=== PATIENT | male | born 1995 | race Caucasian/White ===

== ENCOUNTER 2024-03-14 07:41 | Emergency (ER) | payer BC, SELFPAY ==
[2024-03-14 07:45] VITALS: BP 157/11
[2024-03-14 08:00] VITALS: BP 156/110
--- NOTE | 2024-03-14 08:05 | ED.GENMED ---
History of Present Illness
General
Chief Complaint: Abdominal Pain
Source: patient
Exam Limitations: none
Time Seen by Provider: 03/14/24 08:02
Nursing documentation reviewed up to this point in time: agreed with
History of Present Illness
History of Present Illness:
29 y/o M
no pmh
sudden episode of R flank pain thie morning 645 am
radiates to scrotum
no bakc pain
nausea/vomiting x 1
no fever/chills, diarrhea, dysuria, urinary frequency
no h/o kidney stone
Review of Systems
Review of Systems
Allergies reviewed?: Yes
All Other Systems: Not applicable
Phy Exam
Physical Exam
Physical Exam:
GENERAL: Alert, uncomfortable
Neck: supple
CARDIAC: Regular rate and rhythm .
LUNGS: Clear breath sounds bilaterally, no acute respiratory distress, no wheezes/rales/rhonchi
ABDOMEN: Soft, normal bowel sounds, nondistended, mild R flank tendernessno guarding, no rebound, neg painting's
: deferred
NEUROLOGICAL: Alert and oriented, no focal neuro deficits
SKIN: Warm and dry, skin intact.
PSYCH: Normal and appropriate interaction.
Course
Orders/Labs/Results
Orders:
Orders
03/14/24 07:57
Complete Blood Count/With Diff Urgent
Comprehensive Metabolic Panel Urgent
Lipase Urgent
03/14/24 08:02
0.9% Sodium Chloride 1000 ml [Nss] 1,000 ml IV BOLUS
Ketorolac [Toradol] 30 mg IV NOW STA
Ondansetron Injectable [Zofran] 4 mg IV NOW STA
03/14/24 08:04
CT Abd/pel Without Iv Or Oral Urgent
Comment:
Reason For Exam: r flank pain
03/14/24 09:29
HYDROmorphone [Dilaudid] 0.5 mg IV NOW STA
03/14/24 09:53
Tamsulosin [Flomax] 0.4 mg PO NOW STA
03/14/24 10:07
Urinalysis Reflex To Culture Urgent
Date Specimen was Collected: 03/14/24
Time Specimen was Collected: 08:04
Abnormal Lab Results
03/14/24
07:57
Abs Immat Gran (auto) 0.1 H 10^3/uL
(0-0.05)
Absolute Lymphs (auto) 3.6 H 10^3/uL
(1.2-3.4)
Absolute Monos (auto) 0.9 H 10^3/uL
(0.1-0.6)
Immature Gran % 0.6 H %
(0-0.5)
Glucose 141 H mg/dl
(70-99)
03/14/24 07:57
03/14/24 07:57
Vital Signs
Initial and Last Documented VS:
Initial Vital Signs
Temp Pulse Resp BP Pulse Ox
98.4 F 100 17 157/11 98
03/14/24 07:45 03/14/24 07:45 03/14/24 07:45 03/14/24 07:45 03/14/24 07:45
Last Documented Vital Signs
Temp Pulse Resp BP Pulse Ox
98 F 82 17 133/82 94
03/14/24 11:24 03/14/24 08:00 03/14/24 07:45 03/14/24 11:00 03/14/24 11:00
MDM/Problems Addressed
Differential Diagnosis Includes:
kidney stone, appendicitis
MDM/Problems Addressed:
29-year-old male no medical problems right flank pain this morning with 1 episode of nausea vomiting, patient is pale and uncomfortable but no significant tenderness to his right lower quadrant. Suspect kidney stone. labs show a normal white count,
normal BUN/creatinine, CT scan shows a distal right 3 mm UVJ stone with mild hydro-. Patient's pain was down to 5 out of after Toradol. Will add 1 dose of low Dilaudid, anticipate discharge with Flomax and urology follow-up
*Critical Care Note
Total Time (30-74mins, 75-104mins- exclusive of procedures): Not Applicable
ED Attending Note
-
Portions of this chart may have been created with voice recognition software.� Occasional wrong word or��sound alike� substitutions may have occurred due to the inherent limitations of voice recognition software.
Discharge Plan
Departure
Patient Disposition: Home (Routine Discharge)
Date of Disposition: 03/14/24
Time of Disposition: 10:58
Patient with high blood pressure during this ER visit?: Yes
Condition: Fair
Discharge Problem:
Ureterolithiasis
Instructions: Kidney Stones (DC), BLOOD PRESSURE
Prescriptions:
New
tamsulosin [Flomax] 0.4 mg capsule
0.4 mg PO DAILY Qty: 10 0RF
ondansetron 4 mg tablet,disintegrating
4 mg PO TIDPRN PRN (Reason: nausea/vomiting) Qty: 8 0RF
oxycodone 5 mg tablet
5 mg PO BID PRN (Reason: Pain) Qty: 5 0RF
Referrals:
[facility] [Provider Group] - Follow up in 5-7 days
NONE,* [Family Provider] -
Virgil Tidwell Jr., MD [Active] - Follow up in 1 week (URO)
Activity Restrictions/Additional Instructions:
KEEP STAYING HYDRATED
TAKE FLOMAX 0.4 MG ONCE A DAY UNTIL YOU PASS THE STONE
URINATE THROUGH THE STRAINER EACH TIME YOU PEE
TAKE TYLENOL 2 EXTRA STRENGTH TABS 3 TIMES A DAY FOR PAIN
YOU CAN ALSO TRY MOTRIN 800 MG EVERY 8 HOURS WITH FOOD 2-3 TIMES A DAY NEEDED
IF PAIN IS SEVERE YOU CAN TRY OXYCODONE 5 MG EVERY 6 HOURS NEEDED, THIS IS A NARCOTIC AND YOU CANNOT DRIVE OR DRINK ON THIS MEDICATION.
ZOFRAN EVERY 6 HOURS NEEDED FOR NAUSEA/VOMITING
RETURN FOR: SEVERE PAIN, VOMITING, FEVER, NOT URINATING OR ANY CONCERNS.
OTHERWISE FOLLOW UP WITH YOUR UROLOGIST
Interventions
Interventions:
*Risk Screen - Suicide Last Done: 03/14/24 08:08
*General Assessment Last Done: 03/14/24 08:08
*Neglect/Abuse Screening Last Done: 03/14/24 08:08
*ED COVID-19 Vaccine History Last Done: 03/14/24 08:08
*Nursing Disposition Last Done: 03/14/24 11:27
AF-Bqpcug-Ytfsufilyo Assessment Last Done: 03/14/24 08:08
Discharge Date and Time
Discharge Date/Time: 03/14/24 11:27
Print Language: ESTONIAN
[2024-03-14 08:06] VITALS: BMI 31.8
[2024-03-14 08:09] LABS: % Basophils 0.9 % (0-2); % Eosinophils 1.7 % (0-6); % Immature Granulocytes 0.6 % (0-0.5); % Lymphocytes 38.5 % (20.5-51.1); % Monocytes 9.1 % (1.7-9.3); % Neutrophils 49.2 % (42.2-75.2); Absolute Basophils 0.1 10^3/uL (0-0.2); Absolute Eosinophils 0.2 10^3/uL (0-0.7); Absolute Immature Granulocytes 0.1 10^3/uL (0-0.05); Absolute Lymphocytes 3.6 10^3/uL (1.2-3.4); Absolute Monocytes 0.9 10^3/uL (0.1-0.6); Absolute Neutrophils 4.6 10^3/uL (1.4-6.5); Hematocrit 46.3 % (39.0-52.0); Mean Corp Hgb Conc. 34.6 g/dL (33.0-37.0); Mean Corpuscular Volume 80.9 fL (80.0-94.0); Mean Platelet Volume 10.4 fL (7.4-10.4); Nucleated Red Blood Cells % 0 % (-); Platelet Count 296 10^3/uL (130-400); Red Blood Cell Count 5.72 10^6/uL (4.70-6.10); Red Cell Dist. Width 12.5 % (11.5-14.5); White Blood Cell Count 9.4 10^3/uL (4.8-10.8)
[2024-03-14] MEDS: ZOFRAN 4 MG IV (08:12)
[2024-03-14] MEDS: TORADOL 30 MG IV (08:13)
[2024-03-14] MEDS: NSS 1000 IV (08:13)
[2024-03-14 08:24] LABS: ALT (SGPT) 44 U/L (0-50); AST (SGOT) 25 U/L (17-59); Albumin 4.9 g/dl (3.5-5.0); Alkaline Phosphatase 53 U/L (38-126); Blood Urea Nitrogen 14 mg/dl (9-20); Calcium 9.8 mg/dl (8.4-10.2); Carbon Dioxide 24 mmol/L (22-30); Chloride 103 mmol/L (98-107); Estimated Creatinine Clearance > 125 ml/min; Glucose 141 mg/dl (70-99); Lipase 187 U/L (23-300); Potassium 4.1 mmol/L (3.5-5.1); Sodium 141 mmol/L (135-145); Total Protein 7.5 g/dl (6.3-8.2); eGFR > 60.00
[2024-03-14 08:50] VITALS: BP 148/97
[2024-03-14 09:00] VITALS: BP 155/102
[2024-03-14] MEDS: FLOMAX 0.4 MG PO (09:59)
[2024-03-14] MEDS: DILAUDID 0.5 MG IV (09:59)
[2024-03-14 10:07] VITALS: BP 144/95
[2024-03-14 10:50] LABS: Urine Albumin Negative (Neg - Trace); Urine Bilirubin Negative (Negative); Urine Character Clear (Clear); Urine Color Yellow; Urine Glucose Negative (Negative); Urine Ketone Negative (Negative); Urine Leukocyte Negative (Negative); Urine Nitrite Negative (Negative); Urine Occult Blood Negative (Negative); Urine Urobilinogen Negative (Neg - 1+)
[2024-03-14 11:00] VITALS: BP 133/82
== END 2024-03-14 11:27 | disposition home or self-care (01) ==
LOC: EMR 07:41
PROVIDERS: Physician Assistant; EMERGENCY PHYSICIAN Emergency Medicine
DX: N13.2 Hydronephrosis with renal and ureteral calculous obstruction (principal); R11.2 Nausea with vomiting, unspecified; R03.0 Elevated blood-pressure reading, without diagnosis of hypertension
CPT/HCPCS: 99284; 96374; 96375 ×2; 96361; 74176; 80053; 81003; 83690; 85025